=== PATIENT | male | born 1955 | race Caucasian/White ===

== ENCOUNTER → 2017-04-28 | Outpatient (CLI) | payer OTHER, BC ==
--- NOTE | 2017-04-28 13:26 | DI ---
MRI RIGHT ANKLE SCAN, 04/28/2017 11:00 AM: Clinical History: Right ankle pain. Previous Exam: None at this facility. Technique: Axial, coronal, and sagittal PD and fat saturated PD. There is no soft tissue edema. No joint effusion is present. There is increased signal intensity in t he subchondral region of the medial and intermediate cuneiform bones distally probably representing d eveloping subchondral cysts. A small 2-3 mm subchondral cyst is present in the posterior aspect of th e tibia. The Achilles tendon shows slight thickening but with intrasubstance hyperintensity consisten t with tendinosis. The plantar fascia is normal. The flexor tendons are normal but there is fluid in the tendon sheaths of the peroneus longus and brevis tendons as well as the synovial sheaths of the t ibialis posterior and flexor digitorum longus tendons. The fluid in the tendon sheath of the flexor h allucis longus is physiologic. The extensor tendons are intact. The anterior and posterior syndesmoti c ligaments and the anterior and posterior talofibular ligaments are normal. There is chronic scarrin g of the calcaneofibular ligament and the deltoid ligament. The cervical and intraosseous talocalcane al ligaments are normal. There is chronic scarring of the spring ligament. There is thinning of the c hondral surfaces of the tibiotalar joint but no chondral defects are identified. Readin. Achilles tendinosis. There is tenosynovitis involving the peroneus longus and brevis tendons and the tibialis posterior and flexor digitorum longus tendons. Chronic scarring is noted in the spring l igament, the deltoid ligament, and the CFL. Hyperintensities in the medial and intermediate cuneiform bones probably represent developing subchondral cysts. There is a small subchondral cyst in the post erior portion of the tibia. 2. The extensor tendons and the plantar fascia are normal. The articular surfaces of the tibiotalar joint show thinning but are otherwise intact.
== END ==
LOC: MRI 10:43
PROVIDERS: ATTEND Orthopaedic Surgery
DX: M25.571 Pain in right ankle and joints of right foot (principal); S93.491A Sprain of other ligament of right ankle, initial encounter
CPT/HCPCS: 73721